=== PATIENT | female | born 1970 | race Two or more races ===

== ENCOUNTER 2019-12-29 23:40 | Emergency (ER) | payer OTHER ==
[~2019-12-29] VITALS: Ht 170.2 cm; Wt 61.7 kg
[~2019-12-29 23:40] MED LIST: LAMISIL250 MG PO; YASMIN 28 TABLE1 TAB PO
== END 2019-12-30 01:37 | disposition home or self-care (01) ==
LOC: ER 23:40
DX: R25.8 Other abnormal involuntary movements (principal); R53.81 Other malaise; Z03.818 Encounter for observation for suspected exposure to other biological agents ruled out

== ENCOUNTER 2021-05-07 14:58 | Outpatient (CLI) | payer OTHER | END 2021-05-07 15:02 | disposition home or self-care (01) | LOC: LAB 14:58 | PROVIDERS: ATTEND Emergency Medicine | DX: Z20.828 Contact with and (suspected) exposure to other viral communicable diseases (principal); R05 Cough; R06.02 Shortness of breath; Z03.818 Encounter for observation for suspected exposure to other biological agents ruled out ==

== ENCOUNTER 2022-03-25 14:56 | Emergency (ER) | payer OTHER ==
[~2022-03-25] VITALS: Ht 170.2 cm; Wt 60.8 kg
== END 2022-03-25 18:10 | disposition home or self-care (01) ==
LOC: ER 14:56
DX: S69.82XA Other specified injuries of left wrist, hand and finger(s), initial encounter (principal); S99.921A Unspecified injury of right foot, initial encounter; W20.8XXA Other cause of strike by thrown, projected or falling object, initial encounter; Y93.9 Activity, unspecified; Y92.9 Unspecified place or not applicable; Y99.9 Unspecified external cause status

== ENCOUNTER 2022-09-02 18:40 | Emergency (ER) | payer OTHER ==
[~2022-09-02] VITALS: Ht 170.2 cm; Wt 77.1 kg
== END 2022-09-02 20:43 | disposition home or self-care (01) ==
LOC: ER 18:40
DX: U07.1 COVID-19 (principal); R53.1 Weakness

== ENCOUNTER 2025-01-31 10:25 | Emergency (ER) | payer OTHER ==
[~2025-01-31] VITALS: Ht 170.2 cm; Wt 59.9 kg
[2025-01-31] MEDS ORDERED: ACETAMINOPHEN 500 MG GEL..CAP PO STA (16:32)
[2025-01-31] MEDS ORDERED: ACETAMINOPHEN 500 MG GEL..CAP PO ONE (16:33)
[2025-01-31 17:19] LABS: BASO % 0.1 % (0.1-1.2); EOS # 0.04 (0.04-0.54); EOS % 0.3 % (0.7-7.0); HEMATOCRIT 37.9 % (34.1-44.9); HEMOGLOBIN 12.7 g/dL (11.2-15.7); LYMPH # 1.16 (1.18-3.74); LYMPH % 8.6 % (19.3-53.1); MEAN CORPUSCULAR HEMOGLOBIN 28.8 pg (25.6-32.2); MONO # 0.58 (0.24-0.82); MONO % 4.3 % (4.7-12.5); NEUT # 11.69 (1.56-6.13); NEUT % 86.3 % (34.0-71.1); PLATELET COUNT 269 K/uL (163-369); RED BLOOD COUNT 4.41 M/uL (3.93-5.22); RED CELL DISTRIBUTION WIDTH 13.9 % (11.6-14.4)
[2025-01-31 17:38] LABS: COVID-19 AG NEGATIVE (NEGATIVE)
[2025-01-31 17:42] LABS: INFLUENZA A AG NEGATIVE (NEGATIVE); INFLUENZA B AG NEGATIVE (NEGATIVE)
[2025-01-31 17:45] LABS: ALBUMIN 3.8 gm/dL (3.4-5.0); BILIRUBIN TOTAL 1.18 mg/dL (0.3-1.2); CALCIUM 9.3 mg/dL (8.5-10.1); CREATININE SERUM 0.7 mg/dL (0.55-1.02); GFR 86.87; GLOBULINA 3.7 G/DL (2.4-3.5); POTASSIUM 3.47 mEq/L (3.5-5.1); TOTAL PROTEIN 7.5 gm/dL (6.4-8.2)
[2025-01-31] MEDS ORDERED: AMOX1TAB5 PO (18:46)
== END 2025-01-31 19:43 | disposition home or self-care (01) ==
LOC: ER 10:29
PROVIDERS: General Practice
DX: D72.829 Elevated white blood cell count, unspecified (principal); Z20.822 Contact with and (suspected) exposure to COVID-19